=== PATIENT | female | born 1980 | race African-American/Black ===

== ENCOUNTER 2025-01-03 05:39 | Inpatient (IN) | payer OTHER ==
[2025-01-03] MEDS ORDERED: PHENAZOPYRIDINE HCL 100 MG TABLET (FP) ONE (09:57)
[2025-01-03] MEDS: PHENAZOPYRIDINE HCL 100 MG TABLET (FP) PO ONE (10:00)
[2025-01-03] MEDS ORDERED: PROPOFOL 20 ML ONE ×2 (12:09→15:55)
[2025-01-03] MEDS ORDERED: ROCURONIUM BROMIDE 50 MG/5 ML VIAL ONE ×2 (12:10→14:08)
[2025-01-03] MEDS ORDERED: MIDAZOLAM HCL 2 MG/2 ML SINGLE DOSE VIAL ONE ×2 (12:10→13:26)
[2025-01-03] MEDS ORDERED: ACETAMINOPHEN INJECTION 100 ML ONE (12:47)
[2025-01-03] MEDS ORDERED: HEPARIN NA (PORCINE) 5,000 UNITS/ML 1ML VIAL ONE (12:50)
[2025-01-03] MEDS ORDERED: TRANEXAMIC ACID 1000 MG/10 ML VIAL ONE ×2 (13:45→15:04)
[2025-01-03] MEDS ORDERED: VASopressin 20 UNITS/ML VIAL IV ONE (13:46)
[2025-01-03] MEDS ORDERED: HYDROmorphone HCl 2 MG/ML VIAL ONE (13:49)
[2025-01-03] MEDS: ceFAZolin SODIUM 1 GM VIAL IVPB ONE (13:50)
[2025-01-03] MEDS ORDERED: KETAMINE HCL 200 MG/20 ML VIAL ONE (14:13)
[2025-01-03] MEDS ORDERED: DEXAMETHASONE SOD PHOSPHATE 4 MG/1 ML VIAL ONE (14:23)
[2025-01-03] MEDS ORDERED: ONDANSETRON 4 MG/2 ML VIAL ONE (14:23)
[2025-01-03] MEDS ORDERED: KETOROLAC TROMETHAMINE 30 MG/1 ML VIAL ONE (14:23)
[2025-01-03] MEDS ORDERED: ALBUTEROL SO4 HFA INHALER IH ONE (14:57)
[2025-01-03] MEDS ORDERED: CALCIUM CHLORIDE 1 GM/10 ML *DISP.SYRIN ONE (15:24)
[2025-01-03] MEDS ORDERED: SUGAMMADEX SODIUM 200 MG/2 ML VIAL ONE (15:46)
[2025-01-03] MEDS ORDERED: ONDANSETRON 4 MG/2 ML VIAL IVPUSH PRN (16:36)
[2025-01-03] MEDS ORDERED: oxyCODONE HCL 5 MG TABLET PO PRN ×2 (16:36)
[2025-01-03] MEDS ORDERED: DOCUSATE SODIUM 100 MG CAPSULE (FP) PO PRN (16:36)
[2025-01-03] MEDS: ACETAMINOPHEN 1000 MG/100 ML BAG IVPB ONE (17:37)
[2025-01-03] MEDS: TRANEXAMIC ACID 1000 MG/10 ML VIAL IVPUSH ONE (17:38)
[2025-01-03] MEDS: LACTATED RINGERS SOLUTION 1,000 ML IV SCH (17:48)
[2025-01-03 18:38] VITALS: BMI 27.1
[2025-01-03 18:53] LABS: HEMATOCRIT 36.4 % (34.1-44.9); HEMOGLOBIN 12.1 g/dL (11.2-15.7); MCHC 33.2 g/dl (32.2-35.5); MEAN CELL VOLUME 83.1 fl (79.4-94.8); MEAN PLT VOLUME 9.5 fl (9.4-12.3); PLATELET COUNT 199 x10^3/uL (182-369); RDW 14.2 % (12.2-17.1)
[2025-01-03 19:22] LABS: POTASSIUM 3.5 mmol/L (3.5-5.1)
[2025-01-03 19:26] LABS: BLOOD UREA NITROGEN 10.4 mg/dL (7-18); CALCIUM 9.8 mg/dL (8.5-10.1)
[2025-01-03 19:29] LABS: CREATININE 0.8 mg/dL (0.55-1.3)
[2025-01-03] MEDS: CEFAZOLIN 2 GM in DEXTROSE 5%-WATER - 100 ML IVPB ONE (19:42)
[2025-01-03] MEDS: CEFAZOLIN 1 GM in DEXTROSE 5%-WATER - 50 ML IVPB SCH (19:52)
[2025-01-03] MEDS: ACETAMINOPHEN 1000 MG/100 ML BAG IVPB SCH (23:20)
[2025-01-04 07:24] LABS: HEMOGLOBIN 10.3 g/dL (11.2-15.7); MCHC 34.3 g/dl (32.2-35.5); MEAN CELL VOLUME 81.5 fl (79.4-94.8); PLATELET COUNT 186 x10^3/uL (182-369); RDW 14.6 % (12.2-17.1)
[2025-01-04 08:09] LABS: POTASSIUM 4.8 mmol/L (3.5-5.1)
[2025-01-04 08:11] LABS: BLOOD UREA NITROGEN 16.4 mg/dL (7-18)
[2025-01-04 08:14] LABS: CREATININE 1.1 mg/dL (0.55-1.3)
[2025-01-04] MEDS: ENOXAPARIN NA (PORCINE) 40 MG/0.4 ML DISP.SYRIN SQ SCH (09:32)
[2025-01-04] MEDS: KETOROLAC TROMETHAMINE 30 MG/1 ML VIAL IVPUSH PRN (17:06)
[2025-01-04] MEDS: ACETAMINOPHEN 325 MG TABLET (FP) PO PRN (17:47)
[2025-01-04] MEDS: SIMETHICONE 80 MG TAB.CHEW (FP) PO PRN (21:09)
[2025-01-04 23:45] VITALS: RESP 18
[2025-01-05] MEDS ORDERED: ACETAMINOPHEN 500 MG TABLET (FP) PO PRN (08:31)
[2025-01-05] MEDS: BISACODYL 5 MG TABLET.DR (FP) PO PRN (09:22)
[2025-01-05 09:58] VITALS: BP 118/72; PULSE 119; TEMP 98.4
== END 2025-01-05 14:05 | disposition home or self-care (01) | DRG 743 ==
LOC: JASUSAT 05:39 → J3W 18:01
PROVIDERS: ADMIT Obstetrics & Gynecology; ATTEND Obstetrics & Gynecology
PROC: 0UB90ZZ Excision of Uterus, Open Approach (ICD-10-PCS; principal; 2025-01-03 12:15)
DX: D25.2 Subserosal leiomyoma of uterus (principal); D25.1 Intramural leiomyoma of uterus
CPT/HCPCS: 36415; 36430; 80048; 81025; 85027; 86891; 86922; 88307-TC; 94010; 94760; J0131; J1644; P9058